=== PATIENT | male | born 1990 | race Caucasian/White ===

== ENCOUNTER 2018-10-10 21:27 | Emergency (ER) | payer SELFPAY ==
--- NOTE | 2018-10-10 22:24 | RAD REPORT ---
EXAM DESCRIPTION: RAD - Chest Pa And Lat (2 Views) - 10/10/2018 10:18 pm CLINICAL HISTORY: FEVER Chest pain. COMPARISON: No comparisons FINDINGS: The lungs are clear. The heart is normal in size. No displaced fractures. IMPRESSION: No acute or concerning finding suspected.
[2018-10-10] MEDS ORDERED: IBUPROFEN 400 MG TAB ONE (22:28)
--- NOTE | 2018-10-10 23:03 | EDPHYS ---
Physician Documentation [facility] Name: Rolando Rocha Age: 28 yrs Sex: Male : 1990 Arrival Date: 10/10/2018 Time: 21:30 Bed 17 Private MD: ED Physician Munir Hirsch HPI: 10/10 21:49 This 28 yrs old Male presents to ER via Ambulatory with complaints of Flu jmm Symptoms. 21:49 The patient reports fever, not measured (subjective). Onset: The symptoms/episode jmm began/occurred today. Associated signs and symptoms: Pertinent positives: sinus congestion, sore throat. This is a 28 year old male with no chronic medical conditions that presents to the ED with fever, body aches, sore throat and weakness beginning today. Patient states his was recently diagnosed with pneumonia. Historical: - Allergies: 21:41 No Known Allergies; ak1 - Home Meds: 21:41 None [Active]; ak1 - PMHx: 21:41 None; ak1 - PSHx: 21:41 None; ak1 - Immunization history:: Adult Immunizations unknown. - Social history:: Smoking status: Patient uses tobacco products, smokes one-half pack cigarettes per day. - Ebola Screening: : No symptoms or risks identified at this time. ROS: 21:49 Cardiovascular: Negative for chest pain, palpitations, and edema. jmm 21:49 Abdomen/GI: Negative for abdominal pain, nausea, vomiting, diarrhea, and constipation, Back: Negative for injury and pain, Skin: Negative for injury, rash, and discoloration. 21:49 Constitutional: Positive for fever. 21:49 ENT: Positive for sore throat. 21:49 Respiratory: Positive for shortness of breath. 21:49 Neuro: Positive for weakness. 21:49 All other systems are negative. Exam: 21:49 Head/Face: atraumatic. jmm 21:49 Neck: Trachea midline, Supple Chest/axilla: Normal chest wall appearance and motion. 21:49 Constitutional: The patient appears in no acute distress, alert, awake. 21:49 ENT: TM's: erythema, that is moderate, bilaterally, Posterior pharynx: Airway: normal, Uvula: midline, erythema, that is moderate, peritonsillar mass, is not appreciated. 21:49 Cardiovascular: Rate: normal, Rhythm: regular. 21:49 Respiratory: the patient does not display signs of respiratory distress, Respirations: normal, Breath sounds: are clear throughout. 21:49 Abdomen/GI: Inspection: abdomen appears normal, Bowel sounds: normal, Palpation: abdomen is soft and non-tender, in all quadrants. 21:49 Back: ROM is normal. 21:49 Musculoskeletal/extremity: ROM: intact in all extremities. 21:49 Skin: Appearance: Color: normal in color. 21:49 Neuro: Orientation: is normal, Mentation: is normal, Memory: is normal, Gait: is steady. 21:49 Psych: Behavior/mood is pleasant, cooperative. Vital Signs: 21:39 BP 135 / 76; Pulse 109; Resp 16; Temp 99.3(O); Pulse Ox 100% on R/A; Weight 108.86 kg ak1 (R); Height 6 ft. 3 in. (190.50 cm) (R); Pain 8/10; 23:11 BP 135 / 73; Pulse 101; Resp 18; Temp 99.0; Pulse Ox 97% on R/A; ak1 21:39 Body Mass Index 30.00 (108.86 kg, 190.50 cm) ak MDM: 22:03 Patient medically screened. [facility] 23:01 Data reviewed: vital signs, nurses notes. Data interpreted: Pulse oximetry: on room air [facility] is 100 %. Interpretation: normal. Counseling: I had a detailed discussion with the patient and/or guardian regarding: the historical points, exam findings, and any diagnostic results supporting the discharge/admit diagnosis, lab results, radiology results, the need for outpatient follow up, to return to the emergency department if symptoms worsen or persist or if there are any questions or concerns that arise at home. 23:01 Differential diagnosis: viral Infection, bacterial infection, URI, pneumonia. [facility] 10/10 21:45 Order name: Flu; Complete Time: 22:32 [facility] 10/10 21:45 Order name: Strep; Complete Time: 22:32 [facility] 10/10 22:03 Order name: Chest Pa And Lat (2 Views) XRAY; Complete Time: 22:32 [facility] Administered Medications: 22:22 Drug: Motrin 800 mg Route: PO; [facility] 22:23 Follow up: Response: No adverse reaction ak 22:34 Follow up: Response: No adverse reaction ak1 22:47 Drug: Bicillin L-A 1.2 million units Route: IM; Site: right gluteus; ak1 23:15 Follow up: Response: No adverse reaction ak1 Disposition: 10/11 05:14 Co-signature as Attending Physician, Munir Hirsch MD I agree with the assessment and tw4 plan of care. Disposition: 10/10/18 23:02 Discharged to Home. Impression: Streptococcal tonsillitis. - Condition is Stable. - Discharge Instructions: Strep Throat. - Medication Reconciliation Form, Thank You Letter, Antibiotic Education, Prescription Opioid Use form. - Follow up: Private Physician; When: 2 - 3 days; Reason: Recheck today's complaints, Continuance of care, Re-evaluation by your physician. Signatures: Dispatcher [employer] EDOH Nikolas Vazquez PA PA jmm Krenek, Amber, RN RN ak1 Munir Hirsch MD MD tw4 Corrections: (The following items were deleted from the chart) 10/10 22:24 22:20 Throat Culture ordered. [facility] 23:14 23:02 10/10/2018 23:02 Discharged to Home. Impression: Streptococcal tonsillitis. ak1 Condition is Stable. Forms are Medication Reconciliation Form, Thank You Letter, Antibiotic Education, Prescription Opioid Use. Follow up: Private Physician; When: 2 - 3 days; Reason: Recheck today's complaints, Continuance of care, Re-evaluation by your physician. peter
--- NOTE | 2018-10-10 23:03 | ER ---
Nurse's Notes [facility] Name: Rolando Rocha Age: 28 yrs Sex: Male : 1990 Arrival Date: 10/10/2018 Time: 21:30 Bed 17 Private MD: Diagnosis: Streptococcal tonsillitis Presentation: 10/10 21:40 Presenting complaint: Patient states: throat pain, fever, body aches started this ak1 morning. pt took advil at 1600. Transition of care: patient was not received from another setting of care. Onset of symptoms was October 10, 2018. Risk Assessment: Do you want to hurt yourself or someone else? Patient reports no desire to harm self or others. Initial Sepsis Screen: Does the patient meet any 2 criteria? No. Patient's initial sepsis screen is negative. Does the patient have a suspected source of infection? No. Patient's initial sepsis screen is negative. Care prior to arrival: None. 21:40 Method Of Arrival: Ambulatory ak1 21:40 Acuity: LUPIS 4 ak1 Triage Assessment: 21:41 General: Appears in no apparent distress. Behavior is calm, cooperative. Pain: ak1 Complains of pain in throat and body aches. EENT: Nares with drainage noted Throat is reddened with gag reflex present. Neuro: No deficits noted. Cardiovascular: No deficits noted. Respiratory: No deficits noted. GI: No signs and/or symptoms were reported involving the gastrointestinal system. : No signs and/or symptoms were reported regarding the genitourinary system. Derm: Reports fever this morning. Musculoskeletal: No signs and/or symptoms reported regarding the musculoskeletal system. Historical: - Allergies: 21:41 No Known Allergies; ak1 - Home Meds: 21:41 None [Active]; ak1 - PMHx: 21:41 None; ak1 - PSHx: 21:41 None; ak1 - Immunization history:: Adult Immunizations unknown. - Social history:: Smoking status: Patient uses tobacco products, smokes one-half pack cigarettes per day. - Ebola Screening: : No symptoms or risks identified at this time. Screenin:44 Abuse screen: Denies threats or abuse. Denies injuries from another. Nutritional ak1 screening: No deficits noted. Tuberculosis screening: No symptoms or risk factors identified. Fall Risk None identified. Assessment: 21:43 Reassessment: Patient appears in no apparent distress at this time. see triage ak1 assessment. Vital Signs: 21:39 BP 135 / 76; Pulse 109; Resp 16; Temp 99.3(O); Pulse Ox 100% on R/A; Weight 108.86 kg ak1 (R); Height 6 ft. 3 in. (190.50 cm) (R); Pain 8/10; 23:11 BP 135 / 73; Pulse 101; Resp 18; Temp 99.0; Pulse Ox 97% on R/A; ak1 21:39 Body Mass Index 30.00 (108.86 kg, 190.50 cm) ak1 ED Course: 21:30 Patient arrived in ED. es 21:33 Nikolas Vazquez PA is PHCP. dipeshm 21:33 Munir Hirsch MD is Attending Physician. jmm 21:34 Carli Oates, RN is Primary Nurse. ak1 21:41 Triage completed. ak1 21:41 Arm band placed on Patient placed in an exam room, on a stretcher, on pulse oximetry, ak1 Patient notified of wait time. 21:44 Patient has correct armband on for positive identification. Bed in low position. Call ak1 light in reach. Side rails up X 1. Adult w/ patient. Pulse ox on. NIBP on. 22:18 Chest Pa And Lat (2 Views) XRAY In Process Unspecified. EDMS 23:13 No provider procedures requiring assistance completed. Patient did not have IV access ak1 during this emergency room visit. Administered Medications: 22:22 Drug: Motrin 800 mg Route: PO; ak1 22:23 Follow up: Response: No adverse reaction ak1 22:34 Follow up: Response: No adverse reaction ak1 22:47 Drug: Bicillin L-A 1.2 million units Route: IM; Site: right gluteus; ak1 23:15 Follow up: Response: No adverse reaction ak1 Outcome: 23:02 Discharge ordered by . peter 23:14 Discharged to home ambulatory, with family. ak1 23:14 Condition: improved 23:14 Discharge instructions given to patient, family, Instructed on discharge instructions, follow up and referral plans. Demonstrated understanding of instructions, follow-up care. 23:14 Patient left the ED. ak1 Signatures: Dispatcher [employer] EDMS Nikolas Vazquez, PA PA jmm [place], Arti es Krenek, Carli, RN RN ak1
== END 2018-10-10 23:14 | disposition home or self-care (01) ==
LOC: ER 21:27
DX: J03.00 Acute streptococcal tonsillitis, unspecified (principal); F17.210 Nicotine dependence, cigarettes, uncomplicated
CPT/HCPCS: 71046; 87081; 87804; 96372; 99283